=== PATIENT | female | born 1985 | race Caucasian/White ===

== ENCOUNTER 2018-07-13 11:41 | Outpatient (CLI) | payer MEDICAID ==
[~2018-07-13] VITALS: Ht 157.5 cm; Wt 84.2 kg
[2018-07-13 12:26] VITALS: Ht 157.5 cm; Wt 84.2 kg
[2018-07-13] MEDS ORDERED: PREN-21 PO (14:35)
--- NOTE | 2018-07-13 14:53 | TRIAGE ---
OB Triage Datetime Report Generated by CPN: 07/13/2018 14:53 Datetime: 07/13/2018 12:05 Assessment Type: Triage Maternal Assessment Level of Consciousness: Fully Conscious DTR's/Clonus: DTRs 2+; No Clonus Headache: Denies Blurred Vision: No Respiratory Effort: Unlabored; Regular Rhythm; Equal Expansion Breath Sounds, Left: Clear and Equal Breath Sounds, Right: Clear and Equal Nausea/Vomiting: Denies RUQ Epigastric Pain: Denies Lower Extremities Edema: Bilateral Lower Extremities Degree: 1+ Upper Extremities Edema: None Degree: None Facial Edema: None Fall Risk Assessment History of Falling: (0) No Secondary Diagnosis: (0) No Ambulatory Aid: (0) Bedrest/Nurse Assist IV Therapy: (0) No Gait: (0) Normal/Bedrest/Immobile Mental Status: (0) Oriented to Own Ability Fall Score: 0 Fall Risk Score Definition: No Risk: No action required Datetime: 07/13/2018 11:51 EGA: 30.3 Datetime: 07/13/2018 11:50 Stage of : OB Triage Datetime: 07/13/2018 11:49 Time of Arrival: 07/13/2018 11:38 Arrived By: Ambulatory Arrived From: Dr. Rodriguez Chief Complaint: 2 elevated b/p at office today Movement: Present Contractions: Denies/Absent Rupture of Membranes: Denies Vaginal Bleeding: None Vaginal Discharge: Denies Recent Sexual Intercouse: Denies Abdominal Trauma: Not Applicable Patient Complaints: None Time Provider Notified: 07/13/2018 13:58 Provider Notified: Hadadian Initial Plan: NST, BPP, EFW, PIH labs
--- NOTE | 2018-07-13 16:33 | PN ---
Triage Information Date/Time July 13, 2018 Reason for visit: Eelevated BP in office visit Weeks of Gestation 30 weeks and 5 days /Para 1 para 0 Diabetes: none Hypertention: none Additional information 32-year-old G1, P0 with IUP at 30 weeks and 5 days was sent to the hospital for rule out PIH due to elevated blood pressure in the range of 120s to 140s over 90s in the clinic visit. Patient denies any leaking of fluid, vaginal bleeding decreased movement or contractions. She denies any headache, blurred vision, epigastric pain or right upper quadrant pain. Denies any comp occasions during course. Objective Heart Rate: 130's Heart Rate Comments Category 1 and appropriate for gestational age Contractions: None Exam General appearance: Alert and oriented x4 does not appear to be in any acute distress Abdomen: Soft, gravid, fundal height appears to be consistent with gestational age NST: Category 1 and appropriate for gestational age PIH panels are negative. Patient has serial blood pressure in triage and majority of blood pressures in the range of 120s 130s over 80s She denies any symptoms. Laboratory Tests Test 07/13/18 11:40 07/13/18 12:24 Urine Color YELLOW Urine Clarity SLIGHTLY CLOUDY A Urine pH 6.0 Urine Specific [place] 1.019 Urine Ketones NEGATIVE Urine Nitrite NEGATIVE Urine Bilirubin NEGATIVE Urine Urobilinogen NEGATIVE Urine Leukocyte Esterase NEGATIVE Urine Microscopic RBC 1 Urine Microscopic WBC 4 Urine Squamous Epithelial Cells FEW Urine Bacteria FEW A Urine Mucus FEW A Urine Hemoglobin NEGATIVE Urine Glucose NEGATIVE Urine Total Protein NEGATIVE White Blood Count 9.6 Red Blood Count 4.88 Hemoglobin 12.9 Hematocrit 38.8 Mean Corpuscular Volume 79.5 L Mean Corpuscular Hemoglobin 26.4 L Mean Corpuscular Hemoglobin Concent 33.2 Red Cell Distribution Width 13.9 Platelet Count 267 Mean Platelet Volume 10.8 H Immature Granulocytes % 0.400 Neutrophils % 63.6 Lymphocytes % 26.4 Monocytes % 8.2 Eosinophils % 1.0 Basophils % 0.4 Nucleated Red Blood Cells % 0.0 Immature Granulocytes # 0.040 H Neutrophils # 6.1 Lymphocytes # 2.5 Monocytes # 0.8 Eosinophils # 0.1 Basophils # 0.0 Nucleated Red Blood Cells # 0.0 Sodium Level 136 Potassium Level 3.9 Chloride Level 108 Carbon Dioxide Level 22 Anion Gap 6 Blood Urea Nitrogen 10 Creatinine 0.50 Est Glomerular Filtrat Rate mL/min > 60 Glucose Level 68 L Uric Acid 5.1 Calcium Level 9.2 Total Bilirubin 0.2 Direct Bilirubin 0.00 Indirect Bilirubin 0.2 Aspartate Amino Transf (AST/SGOT) 28 Alanine Aminotransferase (ALT/SGPT) 22 Alkaline Phosphatase 158 H Total Protein 6.7 Albumin 3.2 L Globulin 3.50 H Albumin/Globulin Ratio 0.91 Results/Medications Result Diagram: 07/13/18 1224 07/13/18 1224 Results 24 hrs Laboratory Tests Test 07/13/18 11:40 07/13/18 12:24 Urine Color YELLOW Urine Clarity SLIGHTLY CLOUDY A Urine pH 6.0 Urine Specific [place] 1.019 Urine Ketones NEGATIVE Urine Nitrite NEGATIVE Urine Bilirubin NEGATIVE Urine Urobilinogen NEGATIVE Urine Leukocyte Esterase NEGATIVE Urine Microscopic RBC 1 Urine Microscopic WBC 4 Urine Squamous Epithelial Cells FEW Urine Bacteria FEW A Urine Mucus FEW A Urine Hemoglobin NEGATIVE Urine Glucose NEGATIVE Urine Total Protein NEGATIVE White Blood Count 9.6 Red Blood Count 4.88 Hemoglobin 12.9 Hematocrit 38.8 Mean Corpuscular Volume 79.5 L Mean Corpuscular Hemoglobin 26.4 L Mean Corpuscular Hemoglobin Concent 33.2 Red Cell Distribution Width 13.9 Platelet Count 267 Mean Platelet Volume 10.8 H Immature Granulocytes % 0.400 Neutrophils % 63.6 Lymphocytes % 26.4 Monocytes % 8.2 Eosinophils % 1.0 Basophils % 0.4 Nucleated Red Blood Cells % 0.0 Immature Granulocytes # 0.040 H Neutrophils # 6.1 Lymphocytes # 2.5 Monocytes # 0.8 Eosinophils # 0.1 Basophils # 0.0 Nucleated Red Blood Cells # 0.0 Sodium Level 136 Potassium Level 3.9 Chloride Level 108 Carbon Dioxide Level 22 Anion Gap 6 Blood Urea Nitrogen 10 Creatinine 0.50 Est Glomerular Filtrat Rate mL/min > 60 Glucose Level 68 L Uric Acid 5.1 Calcium Level 9.2 Total Bilirubin 0.2 Direct Bilirubin 0.00 Indirect Bilirubin 0.2 Aspartate Amino Transf (AST/SGOT) 28 Alanine Aminotransferase (ALT/SGPT) 22 Alkaline Phosphatase 158 H Total Protein 6.7 Albumin 3.2 L Globulin 3.50 H Albumin/Globulin Ratio 0.91 Imaging Results PROCEDURE: US OB biophysical profile. CLINICAL INDICATION: decreased movements, preeclampsia TECHNIQUE: Multiple sonographic images of the pelvis were obtained. The images were reviewed on a PACS workstation. COMPARISON: No prior studies are available for comparison. FINDINGS: There is a single live intrauterine gestation. Cardiac activity is present with 146 beats per minute. There is a vertex presentation. The placenta is anterior. There is no evidence of placental abruption. LESLEY = 9.6 cm. Biophysical profile: movement 2/2 tone 2/2. breathing 2/2 LESLEY 2/2 Total 8 RPTAT: AA . IMPRESSION: Normal biophysical profile. PROCEDURE: US OB. CLINICAL INDICATION: Size and dates , preeclampsia TECHNIQUE: Multiple sonographic images of the pelvis and gravid uterus were obtained. The images were reviewed on a PACS workstation. COMPARISON: No prior studies are available for comparison. FINDINGS: Gestation: Single live intrauterine gestation. Cardiac activity: 146 beats per minute. Presentation: Vertex. Placenta: Location: Anterior. Appearance: No previa or abruption. Measurements: BPD = 7.3 cm, 29 weeks and 1 day HC = 26.2 cm, 28 weeks and 3 days AC = 26.2 cm, 30 weeks and 2 days FL = 5.4 cm, 28 weeks and 4 days Gestational Age: AUA estimated gestational age: 29 weeks 1 day LMP estimated gestational age: 30 weeks 3 days AUA estimated date of delivery: 09/27/18 The EFW = 1399 g, 12.3%ile based on LMP age. RPTAT: AA Disposition: Discharge Assessment/Plan IUP at 30 weeks and 5 days patient is asymptomatic. PIH labs are negative Blood pressures during monitoring are within normal limits Estimated weight: 12.3 percentile, borderline Discussed with the patient about PIH precaution Patient will be discharged home with strict labor precautions, PIH precaution Follow-up within 48 hours after discharge from the hospital with primary OB office I also discussed with the patient pending IUGR. Estimated weight 12.3 percentile Understands that she needs to have a follow-up with growth ultrasound after discharge from the hospital with primary OB office Patient verbalized understanding. All questions were answered to the patient with satisfaction. Signs and symptoms of preeclampsia and labor again reviewed by RN in detail. All questions were answered. SOHEILA PANDA MD July 13, 2018 16:33
== END 2018-07-13 14:40 | disposition home or self-care (01) ==
LOC: L-D 11:41 → OBT 11:41
PROVIDERS: ATTEND Obstetrics & Gynecology
DX: O13.3 Gestational [pregnancy-induced] hypertension without significant proteinuria, third trimester (principal); Z3A.30 30 weeks gestation of pregnancy
CPT/HCPCS: 76815; 76818; 80053; 81001; 84560; 85025; Z7500; 81003; G0463

== ENCOUNTER 2018-08-03 11:12 | Inpatient (IN) | payer MEDICAID ==
[~2018-08-03] VITALS: Ht 157.5 cm; Wt 88.2 kg
[~2018-08-03 11:12] MED LIST: PREN-21 PO
[2018-08-03 11:28] VITALS: BP 133/92; PULSE 76; RESP 17; Ht 157.5 cm; Wt 88.2 kg
--- NOTE | 2018-08-03 15:12 | HP ---
Date/Time of Note Date/Time of Note DATE: 08/03/18 TIME: 15:09 OB - History Hx of Present Free Text/Dictation August 03, 2018 : 1 Para: 0 Other Concerns: 32-year-old G1, P0 with IUP at 33 weeks and 3days presented to the hospital for evaluation and rule out PIH due to elevated blood pressure in the office as well as 4+ protein in the urine and edema. Patient reports had on and off headache for the past few days. She denies any blurred vision, epigastric pain or right upper quadrant pain. She was noted to have blood pressure in the range of 140s to 110s over 80s to 90s in triage as well as 2+ protein in the urine. Ultras ound showed LESLEY borderline and 7.4. Patient was admitted for monitoring the blood pressure and 24-hour urine protein collection.\ She denies any leaking of fluid vaginal bleeding or decreased movement. Past Family/Social History * Past Medical, Surgical, Family and Obstetric Histories reviewed from chart. OB Admission Exam Vital Signs Vital Signs Vital Signs Date Temp Pulse Resp B/P (MAP) Pulse Ox O2 O2 Flow FiO2 Time Delivery Rate 08/03/18 98.3 76 17 133/92 11:28 (106) Physical Exam HEENT: WNL Lungs: Clear Abdomen: WNL Extremities: Normal Reflexes: Normal Cervical Dilatation: None Effacement: 0% Membranes: Intact Heart Rate: 130's Accelerations: Accelerations Present Decelerations: No Decelerations Last 72 hourBlood Glucose PROCEDURE: US OB biophysical profile. CLINICAL INDICATION: decreased movements, PIH TECHNIQUE: Multiple sonographic images of the pelvis were obtained. The images were reviewed on a PACS workstation. COMPARISON: 07/13/18 FINDINGS: There is a single live intrauterine gestation. Cardiac activity is present with 142 beats per minute. There is a vertex presentation. The placenta is anterior. There is no evidence of placental abruption. LESLEY = 7.4 cm. Biophysical profile: movement 2/2 tone 2/2. breathing 2/2 LESLEY 2/2 Total 8/8 RPTAT: AA . IMPRESSION: Normal biophysical profile. Oligohydramnios. . Last 72 hours Lab Results CBC & BMP 08/03/18 11:30 Liver Function Test 08/03/18 11:30 Alanine Aminotransferase (ALT/SGPT) 14 Albumin 3.3 Alkaline Phosphatase 226 H Aspartate Amino Transf (AST/SGOT) 28 Direct Bilirubin 0.00 Total Protein 7.2 OB Assessment/Plan Other Assessment: IUP at 33 weeks and 3 days Elevated blood pressure, in the mild range, cannot rule out preeclampsia PIH labs are normal. Had symptoms of headache for the past few days. Borderline amniotic fluid. LESLEY 7.4 Evidence of labor or PPROM Patient will be admitted for 24-hour urine protein collection and serial monitoring blood pressure check. Consider hydration, Serial blood pressure monitoring Estimated weight and repeat ultrasound for amniotic fluid index tomorrow Plan of care discussed with the patient with the RN All questions were answered SOHEILA PANDA MD August 03, 2018 15:12
--- NOTE | 2018-08-03 15:30 | TRIAGE ---
OB Triage Datetime Report Generated by CPN: 08/03/2018 15:29 Datetime: 08/03/2018 13:00 Heart Rate FHR Baseline Rate: 140 Monitor Mode: External US Decelerations: Variable Category: Category II Datetime: 08/03/2018 12:00 Labor Evaluation Frequency: none noted Monitor Mode: External Resting Tone Shedd: Relaxed Heart Rate FHR Baseline Rate: 145 Monitor Mode: External US Variability: Moderate 6-25 bpm Accelerations: 10X10 Decelerations: Variable Category: Category II Pain Assessment Pain Presence: None/Denies Pain Type: N/A Datetime: 08/03/2018 11:36 Assessment Type: Triage Maternal Assessment Level of Consciousness: Fully Conscious DTR's/Clonus: DTRs 2+; No Clonus Headache: Denies Blurred Vision: No Respiratory Effort: Unlabored; Regular Rhythm; Equal Expansion Breath Sounds, Left: Clear and Equal Breath Sounds, Right: Clear and Equal Nausea/Vomiting: Denies RUQ Epigastric Pain: Denies Lower Extremities Edema: Bilateral Lower Extremities Degree: 2+ Upper Extremities Edema: None Facial Edema: None Fall Risk Assessment History of Falling: (0) No Secondary Diagnosis: (0) No Ambulatory Aid: (0) Bedrest/Nurse Assist IV Therapy: (0) No Gait: (0) Normal/Bedrest/Immobile Mental Status: (0) Oriented to Own Ability Fall Score: 0 Fall Risk Score Definition: No Risk: No action required Datetime: 08/03/2018 11:25 Time of Arrival: 08/03/2018 11:05 EGA: 33.3 Arrived By: Ambulatory Arrived From: Dr. Rodriguez Chief Complaint: bp 153/97, 153/90 . 2+ protein urine @ office, deny MOORE, deny epigastric pain, deny visual disturbance Movement: Present Contractions: Denies/Absent Rupture of Membranes: Denies Vaginal Bleeding: None Vaginal Discharge: Denies Recent Sexual Intercouse: Denies Abdominal Trauma: Not Applicable Additional Patient Complaints: pih labs, u/s for bpp Time Provider Notified: 08/03/2018 14:15 Provider Notified: Datetime: 07/13/2018 14:00 Monitor Mode: External Resting Tone Shedd: Relaxed Heart Rate FHR Baseline Rate: 140 Monitor Mode: External US FHR Baseline Changes: No Baseline Change Variability: Moderate 6-25 bpm Accelerations: 15X15 Decelerations: None Category: Category I Pain Assessment Pain Presence: None/Denies Datetime: 07/13/2018 12:10 Monitor Mode: External Resting Tone Shedd: Relaxed Heart Rate FHR Baseline Rate: 150 Monitor Mode: External US FHR Baseline Changes: No Baseline Change Variability: Minimal - Undetectable to <=5 bpm Accelerations: 10X10 Decelerations: None Comments: FHR appropriate for GA Pain Assessment Pain Presence: None/Denies Datetime: 07/13/2018 12:05 Fall Score: 0 Fall Risk Score Definition: No Risk: No action required Datetime: 07/13/2018 11:51 EGA: 30.3
[2018-08-03] MEDS ORDERED: ACETAMINOPHEN 325 MG TAB PO PRN (17:00)
[2018-08-03] MEDS: LACTATED RINGER'S 1,000 ML IV SCH (17:56)
[2018-08-03] MEDS: PRENATAL VITAMIN PO SCH (18:07)
[2018-08-04] MEDS: LACTATED RINGER'S 1,000 ML IV SCH ×3 (01:44→17:18)
[2018-08-04] MEDS ORDERED: PRENATAL VITAMIN PO SCH (09:00)
[2018-08-04] MEDS: PRENATAL VITAMIN PO SCH (11:25)
[2018-08-04] MEDS: BETAMET NA PHOS/AC(6 MG/ML) 2 ML INJ SYG IM SCH (14:11)
[2018-08-05] MEDS: LACTATED RINGER'S 1,000 ML IV SCH ×3 (01:08→21:25)
[2018-08-05] MEDS: PRENATAL VITAMIN PO SCH (08:15)
--- NOTE | 2018-08-05 13:02 | QN ---
Documentation Comment Patient is a 32-year-old 1 para 0 at 33 weeks and 5 days of gestation with estimated date of delivery September 18, 2018 She was admitted for rule out preeclampsia with severe features Patient with labile blood pressures and occasional headaches and epigastric pain 24-hour urine protein collection 736 Patient reports positive movement, denies uterine contractions, denies vaginal bleeding or leaking fluid Vital signs stable VS - Last 72 Hours, by Label Date Temp Pulse Resp B/P (MAP) Pulse Ox O2 O2 Flow FiO2 Time Delivery Rate 08/03/18 98.3 76 17 133/92 11:28 (106) Hematology - 72 Hrs Test 08/03/18 11:30 08/05/18 12:10 Hematocrit 41.5 % (37.0-47.0) 39.2 % (37.0-47.0) Hemoglobin 13.8 g/dl (12.0-16.0) 12.8 g/dl (12.0-16.0) Mean Corpuscular 26.6 pg (29.0-33.0) L 26.5 pg (29.0-33.0) L Hemoglobin Mean Corpuscular 33.3 g/dl (32.0-37.0) 32.7 g/dl (32.0-37.0) Hemoglobin Concent Mean Corpuscular Volume 80.1 fl (82.0-101.0) L 81.2 fl (82.0-101.0) L Mean Platelet Volume 11.1 fl (7.4-10.4) H 11.4 fl (7.4-10.4) H Platelet Count 301 10^3/UL (140-415) 302 10^3/UL (140-415) Red Blood Count 5.18 10^6/ul (4.20-5.40) 4.83 10^6/ul (4.20-5.40) Red Cell Distribution 15.2 % (11.5-14.5) H 15.1 % (11.5-14.5) H Width White Blood Count 10.2 10^3/ul (4.8-10.8) 13.6 10^3/ul (4.8-10.8) #H Chemistry Test 08/03/18 11:30 Sodium Level 137 mmol/L (135-144) Potassium Level 4.6 mmol/L (3.5-5.1) Chloride Level 111 mmol/L (97-110) H Carbon Dioxide Level 19 mmol/L (21-31) L Anion Gap 7 (5-13) Blood Urea Nitrogen 15 mg/dl (7-20) Creatinine 0.56 mg/dl (0.44-1.00) Est Glomerular Filtrat Rate mL/min > 60 mL/min (>60) Glucose Level 76 mg/dl (70-220) Uric Acid 5.7 mg/dl (3.1-7.9) Calcium Level 8.9 mg/dl (8.4-10.2) Total Bilirubin 0.3 mg/dl (0.2-1.3) Direct Bilirubin 0.00 mg/dl (0.00-0.20) Indirect Bilirubin 0.3 mg/dl (0-1.1) Aspartate Amino Transf (AST/SGOT) 28 IU/L (15-46) Alanine Aminotransferase (ALT/SGPT) 14 IU/L (13-69) Alkaline Phosphatase 226 IU/L (42-121) H Total Protein 7.2 g/dl (6.1-8.1) Albumin 3.3 g/dl (3.3-4.9) Globulin 3.90 g/dl (1.3-3.2) H Albumin/Globulin Ratio 0.84 PROCEDURE: OB ultrasound limited for biophysical profile . CLINICAL INDICATION: induced hypertension. Low fluid. TECHNIQUE: Multiple sonographic images of the pelvis were obtained. Transabdominal view of the gravid uterus are available for review. The images were reviewed on a PACS workstation. COMPARISON: US PELVIS 08/03/2018 FINDINGS: breathing movement = 2/2 tone = 2/2 motion = 2/2 Amniotic fluid volume = 2/2 LESLEY = 5.3 cm Cephalic presentation. Heart rate 132 beats per minute. Anterior grade 1 placenta. IMPRESSION: 1. Single viable intrauterine gestation. 2. Biophysical profile = 8. 3. LESLEY = 5.3 cm. RPTAT: QQ .Winston Lauren MD, MD Date Time Electronically viewed and signed by .Winston Lauren MD, MD on 08/05/2018 12:43 .L/ CC: ABENA HANNON MD [id number] PROCEDURE: US Abdomen (right upper quadrant). CLINICAL INDICATION: Epigastric pain TECHNIQUE: Multiple real-time longitudinal and transverse images of the right upper quadrant of the abdomen were acquired utilizing a curved array transducer. Images were reviewed on a high-resolution PACS workstation. COMPARISON: None FINDINGS: The liver is normal in size and echogenicity without focal mass or intrahepatic biliary dilatation. The gallbladder is normal. The common bile duct measures 4.1 mm in maximal dimension. The visualized portions of the pancreas are unremarkable with obscuration of the tail of the pancreas. No free fluid is identified. The right kidney measures 10.5 cm in length. There is no evidence of obstructive uropathy or urolithiasis. No renal masses seen. Visualized portions aorta and inferior vena cava are normal. IMPRESSION: 1. Unremarkable right upper quadrant ultrasound. RPTAT: QQ .Winston Lauren MD, MD Date Time Electronically viewed and signed by .Winston Lauren MD, MD on 08/05/2018 12:52 .L/ CC: ABENA HANNON MD [id number] Assessment and plan Preeclampsia with severe features and borderline oligohydramnios Patient has received 1 dose of betamethasone the second dose is due today at 2 PM I discussed this patient with Dr. Martines/perinatologist who is recommending proceeding with delivery ABENA HANNON MD August 05, 2018 13:02
[2018-08-05] MEDS: BETAMET NA PHOS/AC(6 MG/ML) 2 ML INJ SYG IM SCH (13:49)
--- NOTE | 2018-08-06 01:03 | CONS ---
DATE OF ADMISSION: 08/03/2018 DATE OF CONSULTATION: 08/05/2018 The patient is at 33 weeks and 5 days with severe preeclampsia given the epigastric pain and occasion al headaches, received 2 doses of betamethasone. I spoke to Dr. Welsh yesterday and recommended delive ry after second dose of betamethasone. I also talked today to talk to Dr. Rivas and to the nurse f or the total of 3 times and recommended delivery. Dictated By: LEDY CARMONA MD ST/NTS Conf#: [id number] DID#: [id number] CC: DEMI GOOD MD;*EndCC*
--- NOTE | 2018-08-06 02:00 | QN ---
Documentation Comment Late entry note. Patient seen at the 2200 on 08/05/2018 32-year old 1 with preeclampsia, oligohydramnios and single intrauterine at 33 weeks and 5 days with a TENNIL[place] of 09/18/2018. She states good movement. She denies nausea, vomiting, shortness of breath, chest pain, headache, visual changes, vaginal bleeding or LOF. heart rate is category 1. She has no uterine contraction. She received 2 doses of betamethasone, last dose was at 1400 yesterday. Early this morning she was complaining of headache and epigastric pain and the plan was delivery, however currently denies both of these symptoms. I spent more than 30 minutes with patient and her partner. Preeclampsia and the significance of symptoms of severe features, maternal and complications and risks discussed in detail with patient and her . Both expressed understanding. All of their questions answered. Again she states has no further headache and epigastric pain. Ultrasound on admission with LESLEY of 7.4, repeat ultrasound today with LESLEY of 5.3. Repeat LESLEY tomorrow. 24-hour urine protein is 736. Observe her closely. DEMI GOOD August 06, 2018 02:00
[2018-08-06] MEDS: LACTATED RINGER'S 1,000 ML IV SCH ×3 (05:36→22:32)
[2018-08-06] MEDS ORDERED: OXYTOCIN 30 UNITS/LR 500 ML IV PRN (10:30)
[2018-08-06] MEDS ORDERED: AMPICILLIN 2 GM/NS (PMX) 100 ML IV ONE ×2 (10:30→18:40)
[2018-08-06] MEDS ORDERED: LIDOCAINE 1% (MPF) 30 ML INJ INJ PRN (10:30)
[2018-08-06] MEDS ORDERED: IBUPROFEN 600 MG TAB PO PRN (10:30)
[2018-08-06] MEDS ORDERED: OXYCODONE/ACETAMINOPHEN (5/325) TAB PO PRN (10:30)
[2018-08-06] MEDS ORDERED: BUTORPHANOL 2 MG INJ IV PRN (10:30)
[2018-08-06] MEDS ORDERED: MISOPROSTOL 200 MCG TAB PR PRN (10:30)
[2018-08-06] MEDS ORDERED: METHYLERGONOVINE 0.2 MG INJ IM PRN (10:30)
[2018-08-06] MEDS ORDERED: CARBOPROST 250 MCG INJ IM PRN (10:30)
[2018-08-06] MEDS ORDERED: OXYTOCIN 30 UNITS/LR 500 ML IV SCH ×2 (10:30)
--- NOTE | 2018-08-06 13:44 | PN ---
Date/Time of Note Date/Time of Note DATE: 08/06/18 TIME: 13:37 OB Subjective Subjective Subjective Antepartum Note: Patient seen and examined. She states good movement. She denies nausea, vomiting, shortness of breath, chest pain, headache, visual changes, vaginal bleeding or LOF. OB Objective Objective Objective General: Patient appears well, alert and oriented, NAD, appropriate mood and affect ABD: gravid, soft, non-tender. Back: No CVA tenderness (B/L) LE: Mild edema. No clubbing, cyanosis, edema, thigh or calf tenderness bilaterally FHT: Currently 135 bpm , moderate variability with acceleration, no deceleration-category I Contractions: None OB Assessment/Plan Other plan: 32-year old 1 with preeclampsia, oligohydramnios and single intrauterine at 33 weeks and 6 days - heart rate with 3 deceleration, down to 90. Currently is category 1 - She received 2 doses of betamethasone, last dose was at 1400 yesterday - Preeclampsia and the significance of symptoms of severe features, maternal and complications and risks discussed in detail with patient and her . Both expressed understanding. All of their questions answered. Per Dr. Martines recommendation induction 1 labor for preeclampsia with severe features indicated. Patient transferred to labor and delivery for induction of labor with Cytotec 2) oligohydramnios: LESLEY on admission 7.4, repeat LESLEY 5.3 and 2 days 5.2 cm DEMI GOOD August 06, 2018 13:44
[2018-08-06] MEDS ORDERED: AMPICILLIN 1 GM/NS (PMX) 50 ML IV SCH (14:30)
[2018-08-06] MEDS: MISOPROSTOL 50 MCG CAPSULE PO PRN ×2 (18:20→22:31)
[2018-08-06] MEDS: AMPICILLIN 1 GM/NS (PMX) 50 ML IV SCH (22:32)
[2018-08-07] MEDS: AMPICILLIN 1 GM/NS (PMX) 50 ML IV SCH ×6 (02:40→22:02)
[2018-08-07] MEDS: MISOPROSTOL 50 MCG CAPSULE PO PRN ×4 (02:40→15:41)
[2018-08-07] MEDS: LACTATED RINGER'S 1,000 ML IV SCH ×3 (08:59→23:22)
[2018-08-07] MEDS: MAGNESIUM SULFATE 4 GM/100 ML 100 ML IV SCH ×2 (10:00→10:31)
[2018-08-07] MEDS: MAGNESIUM SULFATE 20 GM/500 ML 500 ML IV SCH ×2 (10:34→20:01)
[2018-08-07] MEDS ORDERED: OXYTOCIN 30 UNITS/LR 500 ML IV SCH (20:30)
[2018-08-08] MEDS: AMPICILLIN 1 GM/NS (PMX) 50 ML IV SCH ×6 (02:06→21:57)
[2018-08-08] MEDS ORDERED: ACETAMINOPHEN 325 MG TAB PO PRN (06:30)
[2018-08-08] MEDS: MAGNESIUM SULFATE 20 GM/500 ML 500 ML IV SCH (08:51)
[2018-08-08] MEDS: LACTATED RINGER'S 1,000 ML IV SCH ×2 (12:57→21:57)
--- NOTE | 2018-08-08 19:38 | PREAC ---
Date/Time of Note Date/Time of Note DATE: 08/08/18 TIME: 19:37 Anesthesia Eval and Record Evaluation Time Pre-Procedure Interview DATE: 08/08/18 TIME: 19:37 Age 32 Sex female NPO: Other (na ) Preoperative diagnosis preclampsia Planned procedure induction of labor Past Medical History Past Medical History: Includes : Other (preclampsia ) Surgery & Anesthesia Issues No known issue Meds Anticoagulation: No Beta Mauricio within 24 hr: No Reason Beta Mauricio not given: Pt. not on B-Mauricio Reported Medications [id number]/Iron Fumarate/FA/Dss ( 19 Tablet) 1 Each Tablet, 1 EACH PO, TAB 07/13/18 Current Medications Butorphanol Tartrate (Stadol) 2 mg Q2H PRN IV .PAIN SCALE 6-10; Start 08/06/18 at 10:30 Lidocaine (Xylocaine 1% (Mpf)) 30 ml ONCE PRN INJ .EPISIOTOMY; Start 08/06/18 at 10:30 Oxytocin/Lactated Ringer's 500 ml @ 500 mls/hr ONCE POST IV ; Start 08/06/18 at 10:30 Oxytocin/Lactated Ringer's 500 ml @ 125 mls/hr POST IV ; Start 08/06/18 at 10:30 Ibuprofen (Motrin) 600 mg ONCE PRN PO .PAIN 1-5; Start 08/06/18 at 10:30 Oxycodone/ Acetaminophen (Percocet (5/ 325)) 2 tab ONCE PRN PO .PAIN 6-10; Start 08/06/18 at 10:30 Oxytocin/Lactated Ringer's 500 ml @ 0 mls/hr ONCE PRN IV .VAGINAL BLEEDING; Start 08/06/18 at 10:30 Methylergonovine Maleate (Methergine) 0.2 mg ONCE PRN IM .VAGINAL BLEEDING; Start 08/06/18 at 10:30 Carboprost Tromethamine (Hemabate) 250 mcg ONCE PRN IM .VAGINAL BLEEDING; Start 08/06/18 at 10:30 Misoprostol (Cytotec) 1,000 mcg ONCE PRN DE .VAGINAL BLEEDING; Start 08/06/18 at 10:30 Misoprostol (Cytotec 50 Mcg Capsule) 50 mcg Q4 PRN PO LABOR INDUCTION Last administered on 08/07/18at 15:41; Admin Dose 50 MCG; Start 08/06/18 at 10:30 Ampicillin 50 ml @ 100 mls/hr Q4H IV Last administered on 08/08/18 18:07; Admin Dose 100 MLS/HR; Start 08/06/18 at 22:30 Magnesium Sulfate 500 ml @ 50 mls/hr Q10H IV Last administered on 08/08/18 08:51; Admin Dose 50 MLS/HR; Start 08/07/18 at 09:33 Lactated Ringer's 1,000 ml @ 75 mls/hr [id number] IV Last administered on 08/08/18 12:57; Admin Dose 75 MLS/HR; Start 08/07/18 at 11:00 Oxytocin/Lactated Ringer's 500 ml @ 0 mls/hr FOR INDUCTION IV Last administered on 08/07/18 20:38; Admin Dose 1 MLS/HR; Start 08/07/18 at 20:30 Acetaminophen (Tylenol Tab) 650 mg Q6H PRN PO MILD PAIN(1-3)OR ELEVATED TEMP Last administered on 08/08/18 06:12; Admin Dose 650 MG; Start 08/08/18 at 06:30 Meds reviewed: Yes Allergies Coded Allergies: No Known Allergy (Unverified , 07/13/18) Allergies Reviewed: Yes Labs/Studies Labs Reviewed: Reviewed by anesthesiologist Result Diagram: 08/08/18 0838 08/08/18 0838 Laboratory Tests 08/08/18 08:38 test: N/A Pre-procedure Exam Airway: Adequate mouth opening, Adequate thyromental dist Mallampati: Mallampati III Teeth: Normal Lung: Normal Heart: Normal ASA Physical Status ASA physical status: 3 Emergency: None Pre-operative Attestations Prior to commencing anesthesia and surgery, the patient was re-evaluated, there was verification of: *The patient's identity *The results of appropriate recent lab work and preoperative vital signs *The above evaluation not changing prior to induction *Anesthetic plan, risk benefits, alternative and complications discussed with patient/family; questions answered; patient/family understands, accepts and wishes to proceed. TIBURCIO FALCON DO August 08, 2018 19:38
[2018-08-08] MEDS ORDERED: FENTAnyl 50 MCG/ML VIAL ONE (19:46)
[2018-08-08] MEDS ORDERED: NALOXONE (0.4 MG/ML) INJ IV PRN (20:00)
[2018-08-08] MEDS ORDERED: FENTAnyl 2MCG/ML-ROPIV 0.2% 100 ML BAG EPI SCH (20:00)
[2018-08-09] VITALS (18 sets, daily range): BP systolic 104–153; BP diastolic 61–85; PULSE 19–77; RESP 18–20
[2018-08-09] MEDS: MAGNESIUM SULFATE 20 GM/500 ML 500 ML IV SCH ×6 (01:33→21:33)
[2018-08-09] MEDS: AMPICILLIN 1 GM/NS (PMX) 50 ML IV SCH (02:21)
[2018-08-09] MEDS: LACTATED RINGER'S 1,000 ML IV* SCH ×3 (04:12→20:12)
--- NOTE | 2018-08-09 04:12 | LDN ---
Date/Time of Note Date/Time of Note DATE: 08/09/18 TIME: 04:09 Delivery Summary Weeks of Gestation 34 weeks and 2 days Placenta Delivered: Spontaneously Meconium: none Episiotomy: No Perineal laceration: 0 Anesthesia type: Epidural Estimated blood loss: 150 Sponge & Needle done & correct: Yes All needle counts correct: Yes Any foreign bodies felt in the: No Infant Delivery Information Sex Sex: female Apgars 1 Minute: 8 5 Minute: 9 Suctioning Nose & mouth suctioned at laura: No Delee suction performed: No Umbilical Cord Umbilical cord with: 3 Vessels Cord presentations: no nuchal cord Cord Blood was obtained: Yes Mother & Baby Disposition Disposition Mom transferred to: Other (Maternity) Baby to NICU: Yes LIZBET SHIPMAN MD August 09, 2018 04:12
[2018-08-09] MEDS ORDERED: HYDROCODONE/APAP (5/325) TAB PO PRN (04:30)
[2018-08-09] MEDS ORDERED: DIBUCAINE 1% 30 GM OINT TOP PRN (04:30)
[2018-08-09] MEDS ORDERED: WITCH HAZEL/GLYCERIN PAD PR PRN (04:30)
[2018-08-09] MEDS ORDERED: ACETAMINOPHEN 325 MG TAB PO PRN (04:30)
[2018-08-09] MEDS ORDERED: CARBOPROST 250 MCG INJ IM PRN (04:30)
[2018-08-09] MEDS ORDERED: BENZOCAINE 20% 56 ML SPRAY TOP PRN (04:30)
[2018-08-09] MEDS ORDERED: OXYTOCIN 30 UNITS/LR 500 ML IV PRN (04:30)
[2018-08-09] MEDS ORDERED: MISOPROSTOL 200 MCG TAB PR PRN (04:30)
[2018-08-09] MEDS: IBUPROFEN 600 MG TAB PO SCH ×3 (07:03→18:44)
--- NOTE | 2018-08-09 09:05 | RADRPT ---
Vent Rate: 48 bpm RR Interval: 1236 msec [place] Interval: 125 msec QRS Duration: 96 msec QT Interval: 491 msec QTC Interval: 442 msec P-R-T Ernest: 28 - -21 - 24 degrees Sinus bradycardia... Electronically Signed By: Brian De Leon
[2018-08-09] MEDS: SENNA/DOCUSATE NA (8.6MG/50MG) TAB PO SCH ×2 (09:39→22:43)
--- NOTE | 2018-08-09 14:30 | PAC ---
Date/Time of Note Date/Time of Note DATE: 08/09/18 TIME: 14:30 Post-Anesthesia Notes Post-Anesthesia Note Last documented vital signs Vital Signs Date Temp Pulse Resp B/P (MAP) Pulse Ox O2 O2 Flow FiO2 Time Delivery Rate 08/09/18 98.2 67 19 148/78 100 Room Air 12:00 (101) Activity: WNL Respiratory function: WNL Cardiovascular function: WNL Mental status: Baseline Pain reasonably controlled: Yes Hydration appropriate: Yes Nausea/Vomiting absent: Yes TIBURCIO FALCON DO August 09, 2018 14:30
[2018-08-09] MEDS: LACTATED RINGER'S 1,000 ML IV SCH (16:22)
--- NOTE | 2018-08-09 18:40 | PN ---
Date/Time of Note Date/Time of Note DATE: 08/09/18 TIME: 18:38 OB Subjective Subjective Subjective PPD# 0 Patient is doing well. She denies nausea, vomiting, shortness of breath, chest pain, headache. She has been ambulating without difficulty, tolerating regular diet. Pain is well controlled on current medications OB Objective Objective Objective VS - Last 72 Hours, by Label Date Temp Pulse Resp B/P (MAP) Pulse Ox O2 O2 Flow FiO2 Time Delivery Rate 08/09/18 73 20 122/81 17:25 (95) 08/09/18 98.6 66 19 138/85 99 Room Air 16:00 (102) 08/09/18 65 19 136/77 Room Air 14:00 (96) 08/09/18 67 20 145/72 Room Air 13:00 (96) 08/09/18 98.2 67 19 148/78 100 Room Air 12:00 (101) 08/09/18 64 20 144/70 Room Air 11:00 (94) 08/09/18 69 18 142/75 Room Air 10:00 (97) 08/09/18 63 19 139/77 Room Air 09:00 (97) 08/09/18 98.6 19 20 125/72 98 Room Air 08:00 (89) 08/09/18 67 18 130/75 Room Air 07:00 (93) 08/09/18 98.1 66 18 140/81 06:50 (100) 08/09/18 98.9 69 19 153/72 Room Air 05:50 (99) General: AAO X 3, comfortable, NAD, appropriate mood and affect. ABD: +BS. Soft, non-tender. Uterus 2 cm below umbilicus Flank: No CVA tenderness (B/L) LE: Mild edema. No clubbing, cyanosis, thigh or calf tenderness (B/L). Homans 'sign is negative OB Assessment/Plan Other plan: 32-year-old 1 para 1-0-1-0 1 week preeclampsia with severe features s/p normal vaginal delivery at 34 weeks and 2 days. PPD#0 - AF, VSS - Baby is in NICU - Contraception methods with R/B/A/FR discussed - Continue care - She is currently on magnesium sulfate DEMI GOOD August 09, 2018 18:40
[2018-08-10] VITALS (11 sets, daily range): BP systolic 113–145; BP diastolic 68–108; PULSE 57–74; RESP 18
[2018-08-10] MEDS: IBUPROFEN 600 MG TAB PO SCH ×3 (00:50→12:12)
[2018-08-10] MEDS: LACTATED RINGER'S 1,000 ML IV* SCH ×3 (04:12→20:12)
[2018-08-10] MEDS: LACTATED RINGER'S 1,000 ML IV SCH (05:40)
[2018-08-10] MEDS: MAGNESIUM SULFATE 20 GM/500 ML 500 ML IV SCH (07:33)
[2018-08-10] MEDS: SENNA/DOCUSATE NA (8.6MG/50MG) TAB PO SCH ×2 (12:13→21:31)
--- NOTE | 2018-08-10 16:56 | PN ---
Date/Time of Note Date/Time of Note DATE: 08/10/18 TIME: 16:54 OB Subjective Subjective Subjective Patient reports decreased vaginal bleeding. Denies any headache, blurred vis ion, epigastric pain right upper quadrant pain. Feels very good since magnesium was stopped. Vaginal bleeding in the amount of menses. Pumping her breast. OB Objective Objective Objective General appearance: Alert and oriented x4 does not appear to be in any acute distress Abdomen: Soft, fundus firm and palpable below the umbilicus Breast: No evidence of mastitis or fissure Extremities: No calf tenderness, no click no edema no cord palpable VS - Last 72 Hours, by Label Date Temp Pulse Resp B/P (MAP) Pulse Ox O2 O2 Flow FiO2 Time Delivery Rate 08/10/18 98.0 74 18 135/92 15:30 (106) 08/10/18 98.2 18 134/84 Room Air 12:00 (101) 08/10/18 98.1 63 18 133/94 Room Air 08:00 (107) 08/10/18 97.5 57 18 145/89 06:00 (107) 08/10/18 18 140/108 05:00 (119) 08/10/18 97.6 70 18 141/103 Room Air 04:00 (116) 08/10/18 97.7 69 18 113/69 Room Air 03:55 (84) 08/10/18 97.7 63 18 119/68 Room Air 02:30 (85) 08/10/18 97.8 66 18 117/79 01:20 (92) 08/10/18 97.7 70 18 127/70 Room Air 00:20 (89) 08/09/18 70 18 118/62 23:20 (80) 08/09/18 97.6 73 18 104/61 Room Air 22:20 (75) 08/09/18 97.9 68 18 132/72 Room Air 21:20 (92) 08/09/18 97.6 67 18 135/80 Room Air 20:20 (98) 08/09/18 97.8 69 18 134/74 19:45 (94) 08/09/18 73 20 122/81 Room Air 18:00 (95) 08/09/18 77 20 135/78 17:25 (97) 08/09/18 98.6 66 19 138/85 99 Room Air 16:00 (102) 08/09/18 65 19 136/77 Room Air 14:00 (96) 08/09/18 67 20 145/72 Room Air 13:00 (96) 08/09/18 98.2 67 19 148/78 100 Room Air 12:00 (101) 08/09/18 64 20 144/70 Room Air 11:00 (94) 08/09/18 69 18 142/75 Room Air 10:00 (97) 08/09/18 63 19 139/77 Room Air 09:00 (97) 08/09/18 98.6 19 20 125/72 98 Room Air 08:00 (89) 08/09/18 67 18 130/75 Room Air 07:00 (93) 08/09/18 98.1 66 18 140/81 06:50 (100) 08/09/18 98.9 69 19 153/72 Room Air 05:50 (99) Laboratory Tests Test 08/09/18 18:04 08/10/18 00:33 08/10/18 06:13 Magnesium Level 6.4 *H 6.6 *H 4.6 #H White Blood Count 8.6 Red Blood Count 4.70 Hemoglobin 12.3 Hematocrit 37.8 Mean Corpuscular Volume 80.4 L Mean Corpuscular Hemoglobin 26.2 L Mean Corpuscular Hemoglobin Concent 32.5 Red Cell Distribution Width 15.8 H Platelet Count 241 Mean Platelet Volume 10.8 H Immature Granulocytes % 0.500 H Neutrophils % 59.8 Lymphocytes % 30.6 Monocytes % 8.5 Eosinophils % 0.3 Basophils % 0.3 Nucleated Red Blood Cells % 0.0 Immature Granulocytes # 0.040 H Neutrophils # 5.1 Lymphocytes # 2.6 Monocytes # 0.7 Eosinophils # 0.0 Basophils # 0.0 Nucleated Red Blood Cells # 0.0 OB Assessment/Plan Other Assessment: Status post day #1 PIH, delivered Was on magnesium, currently off of magnesium Blood pressures well controlled currently without meds Patient is asymptomatic Continue routine care Anticipate DC home tomorrow SOHEILA PANDA MD August 10, 2018 16:56
[2018-08-11] MEDS: IBUPROFEN 600 MG TAB PO SCH ×4 (00:09→12:53)
[2018-08-11] MEDS ORDERED: LANOLIN HPA 1 PKT TOP PRN (01:00)
[2018-08-11 04:00] VITALS: BP 127/77; PULSE 61; RESP 20
[2018-08-11] MEDS ORDERED: DIPHTH/TET/ACEL PERTUSS (ADULT) 0.5 ML VIAL IM* ONE (09:00)
[2018-08-11 09:05] VITALS: BP 116/76; PULSE 70; RESP 16
[2018-08-11] MEDS: SENNA/DOCUSATE NA (8.6MG/50MG) TAB PO SCH (09:56)
--- NOTE | 2018-08-11 13:15 | DS ---
Date/Time of Note Date/Time of Note DATE: 08/11/18 TIME: 13:13 Obstetrical Discharge Record Final Diagnosis Final Diagnosis: delivered Other Final Diagnosis GHTN Vaginal Delivery Obstetrical Delivery: Spontaneous Complications Preg induced Hypertension Induction: Yes Rupture of Membranes: Yes Condition on Discharge Physical Assessment Last Vitals: normotensive afebrile Voiding: Yes Bowel Movement: Yes Breast: Soft, non-tender Fundus: Firm Abdomen and Incision: n/a Episiotomy: n/a Calf Tenderness: No Patient Condition: Stable FATMATA TAVERAS MD August 11, 2018 13:15
--- NOTE | 2018-08-11 16:39 | PD.PPDC ---
HYDRAULIC PRESS TENDER Discharge Instruction Diagnosis [id number] Final Diagnosis: [id number] s/p Condition [id number] Patient Condition: [id number] Stable Diet [id number] Diet: Kkony5i Resume Regular Diet Activity/Restrictions [id number] Activity: [id number] May Shower [id number] Restrictions: [id number] No Lifting No Sexual Activity Nothing in the Vagina No [place] No Tampons, douche Follow-up Follow-up with Physician: 2, Week/Weeks Return to clinic for [id number] PLANT CUSTODIAN Instructions: [id number] Fever greater than 101 Chills Worsening abdominal pain Excessive Vaginal Bleeding More than 2 pads per hour Unable to tolerate diet [id number] OB Instructions: Oezjn1i Breast Tenderness Depression Blurried Vision Headache FATMATA TAVERAS MD August 11, 2018 16:39
--- NOTE | 2018-08-12 18:34 | DELSUM ---
Delivery Summary A-C Datetime Report Generated by CPN: 08/12/2018 18:33 DELIVERY PERSONNEL Director Of Staff Development: Amanda Candelaria MATERNAL INFORMATION Delivery Anesthesia: Epidural Medications in Delivery: MAGNESIUM SULFATE, PITOCIN Delivery QBL (ml): 150 Placenta Cultured: Yes Maternal Complications: Other Other Maternal Complications: PIH LABOR SUMMARY EDC: 09/18/2018 00:00 No. Babies in Womb: 1 Attempted: No Labor Anesthesia: None LABOR INFORMATION Reason for Induction: Gest. HTN/PreEclam/Eclamp Onset of Labor: 08/06/2018 19:00 Complete Dilatation: 08/09/2018 03:33 Cervical Ripening Agents: Cytotec @ Oxytocin: Induction Group B Beta Strep: Not Done Antibiotics # of Doses: 15 Antibiotics Time of Last Dose: 08/09/2018 02:21 Steroids Given: >24Hs before Delivery Reason Steroids Not Administered: Not Applicable MEMBRANES Membranes Rupture Method: Artificial Rupture of Membranes: 08/08/2018 21:20 Length of Rupture (hr): 6.58 Amniotic Fluid Color: Clear Amniotic Fluid Amount: Small Amniotic Fluid Odor: None STAGES OF LABOR Stage 1 hr: 56 Stage 1 min: 33 Stage 2 hr: 0 Stage 2 min: 22 Stage 3 hr: 0 Stage 3 min: 4 Total Time in Labor hr: 56 Total Time in Labor min: 59 VAGINAL DELIVERY Episiotomy: None Laceration Extension: N/A Laceration Type: None Laceration Repair: Not Applicable Initial Vag Sponge Count: 10 Final Vag Sponge Count: 10 Initial Vag Sharps Count: 1 Final Vag Sharps Count: 1 Sponge Count Correct: Yes; Vaginal Sweep Performed Sharps Count Correct: Yes BABY A INFORMATION Infant Delivery Date/Time: 08/09/2018 03:55 Method of Delivery: Vaginal Born in Route : No : N/A Forceps: N/A Vacuum Extraction: N/A Shoulder Dystocia : N/A SHOULDER DYSTOCIA BABY A Infant Delivery Date/Time: 08/09/2018 03:55 PRESENTATION/POSITION BABY A Presentation: Cephalic Cephalic Presentation: Vertex Vertex Position: Left Occipital Anterior Breech Presentation: N/A PLACENTA INFORMATION BABY A Placenta Delivery Time : 08/09/2018 03:59 Placenta Method of Delivery: Spontaneous Placenta Status: Delivered SCORES BABY A Heart Rate 1 min: >100 bpm Resp Effort 1 min: Good Cry Reflex Irritability 1 min: Cough/Sneeze/Pulls Away Muscle Tone 1 min: Active Motion Color 1 min: Blue/Pale Resuscitation Effort 1 min: Tactile Stimulation SCORE 1 MIN: 8 Heart Rate 5 min: >100 bpm Resp Effort 5 min: Good Cry Reflex Irritability 5 min: Cough/Sneeze/Pulls Away Muscle Tone 5 min: Active Motion Color 5 min: Body [place], Extremit Blue Resuscitation Effort 5 min: Tactile Stimulation SCORE 5 MIN: 9 INFORMATION BABY A Gestational Age at Delivery: 34.2 Gestational Status: Late - 34- 36.6 Weeks Outcome : Liveborn Condition : Stable Sex: Female IDENTIFICATION/MEDS BABY A ID Band Number: [id number] ID Band Location: Right Leg; Left Arm Sensor Applied: No Vitamin K Given : Not Given Erythromycin Given: Not Given WEIGHT/LENGTH BABY A Infant Birthweight (gm): 1330 Infant Weight (lb): 2 Weight (oz): 15 Infant Length (in): 15.00 Length (cm): 38.10 CORD INFORMATION BABY A No. Cord Vessels: 3 Nuchal Cord : N/A Cord Blood Taken: Yes Suction: Mouth; Nose ASSESSMENT BABY A Complications: Multiple Variable Decels; None Physical Findings at Delivery: Within Normal Limits Infant Respirations: Appears Normal Emd Teacher/ALS Called : Yes Transferred To: NICU
== END 2018-08-11 17:25 | disposition home or self-care (01) | DRG 806 ==
LOC: OBT 11:12 → L-D 11:13 → OBT 14:20 → L-D 14:20 → PP1 08-04 14:02 → L-D 08-06 09:25 → PP1 08-09 05:51
PROVIDERS: ADMIT Obstetrics & Gynecology; ATTEND Obstetrics & Gynecology
PROC: 10E0XZZ Delivery of Products of Conception, External Approach (ICD-10-PCS; principal; 2018-08-09)
DX: O14.13 Severe pre-eclampsia, third trimester (principal); O41.03X0 Oligohydramnios, third trimester, not applicable or unspecified; Z37.0 Single live birth; O42.913 Preterm premature rupture of membranes, unspecified as to length of time between rupture and onset of labor, third trimester; O13.4 Gestational [pregnancy-induced] hypertension without significant proteinuria, complicating childbirth; Z3A.33 33 weeks gestation of pregnancy; Z23 Encounter for immunization
CPT/HCPCS: 36415; 62322; 76705; 76815; 76816; 76818; 80053; 81001; 82575; 83735; 84156; 84560; 85025; 85384; 85610; 85730; 86592; 86850; 86900; 86901; 88307; 90715; 93005; 99464; G0463; J0290; J0702; J2590; J3010; J3475; J7120